=== PATIENT | male | born 1975 | race Caucasian/White ===

== ENCOUNTER 2019-08-30 16:07 | Emergency (ER) | payer OTHER ==
--- NOTE | 2019-08-30 16:37 | PDOC ---
Rapid Medical Evaluation Chief Complaint: Cold Symptoms Time Seen by Provider: 08/30/19 16:33 Medical Evaluation: Allergies Allergy/AdvReac Type Severity Reaction Status Date / Time No Known Allergies Allergy Verified 08/30/19 16:31 08/30/19 16:34 HPI: COVID-19 CDC guideline data points: The patient is a 43-year-old male presents with suspected COVID-19 with associated symptoms of anorexia, cough, fever, diarrhea, complicated by this/these comorbidities: none. ROS: NEGATIVE: difficulty breathing, shortness of breath, chest pain, lightheadedness, dizziness, nausea, vomiting. Other 12 point ROS reviewed and negative. Exam: General: NAD, Well-Appearing, Awake, Alert Oriented x3. Vital signs stable. ENT: No rhinorrhea or nasal congestion. Neck: FROM, no midline tenderness. Lungs: Clear to auscultation bilaterally without wheezes, rhonchi or rales. Normal excursion. Patient is able to speak in full sentences. Heart: HR: Regular rhythm, S1-S2 present, no murmurs rubs or gallops. Abdomen: Non-distended. MSK/Extremities: No decrease ROM, No obvious deformities. No obvious cyanosis noted. Neuro: Normal Gait, Cranial Nerves II through XII Grossly Intact. Skin: No obvious rashes, bruising. Color Normal Appearing. Assessment/Plan: Patient does not meet testing criteria at this time. ASSESSMENT: Referred for outpatient testing appt. Treatment: Supportive. ER return precautions reviewed. Discharge Disposition - Diagnosis Weakness - Discharge Dispostion Disposition: HOME Decision to Admit order: No - Referrals - Patient Instructions Additional Instructions: You were seen for your cough and possible Coronavirus (COVID-19) Please call the [facility] testing center to make an appointment at or you can call [facility] at from 8:30 AM to 6 PM; or you can visit the [facility] website: [email or web address] for more information about testing at the [facility]. Take Tylenol 650 mg every 6 hours as needed for fever or pain. You may take Robitussin or other [id number]-sdt-iddrtms cough syrup. Follow the dosing instructions on the bottle. Warm tea, honey, and salt water gargles may help your symptoms. Please take precautions and self quarantine for 2 weeks and follow-up with your primary care doctor and the Department of Health. Return to the nearest emergency department for shortness of breath, difficulty breathing, chest pain, or if you have any changes in your symptoms. - Post Discharge Activity
[2019-08-30 16:40] VITALS: BP 110/70; PULSE 85; TEMP 98.9
== END 2019-08-30 17:00 | disposition home or self-care (01) ==
LOC: JER 16:07
DX: R53.1 Weakness (principal)
CPT/HCPCS: 99282-25